=== PATIENT | male | born 1960 | race Two or more races ===

== ENCOUNTER 2025-02-19 10:39 | Outpatient (CLI) | payer MEDICAID ==
[2025-02-19] MEDS ORDERED: ALBUTEROL SULF 2.5 MG/0.5ML(0.5%) NEB SOLN ONE (10:47)
== END 2025-02-19 17:00 | disposition home or self-care (01) ==
LOC: RT 10:39
PROVIDERS: ATTEND Internal Medicine Pulmonary Disease
DX: J44.9 Chronic obstructive pulmonary disease, unspecified (principal); R06.09 Other forms of dyspnea; R05.3 Chronic cough
CPT/HCPCS: 94060; 94618; 94727; 94729